=== PATIENT | female | born 1980 | race Caucasian/White ===

== ENCOUNTER 2019-11-09 09:33 | Emergency (ER) | payer BC, OTHER ==
[2019-11-09 09:45] VITALS: BP 118/78
--- NOTE | 2019-11-09 09:54 | UC ---
Throat Pain/Nasal Cash HPI - HPI Summary HPI Summary: 39 yo female presents with sore throat. She tells me that last night she developed a sore throat and headache. Her son has similar symptoms and tested positive for strep today at his art preparator's office. Pt is concerned she has strep. Nothing OTC for symptoms. She is eating, drinking, and tolerating po well. Denies fever, sinus symptoms, cough, rash. - History of Current Complaint Chief Complaint: UCGeneralIllness Stated Complaint: SORE THROAT Time Seen by Provider: 11/09/19 09:54 Hx Obtained From: Patient Hx Last Menstrual Period: 11/02/14 Onset/Duration: Sudden Onset Severity: Mild Pain Intensity: 4 Pain Scale Used: 0-10 Numeric - Allergies/Home Medications Allergies/Adverse Reactions: Allergies Allergy/AdvReac Type Severity Reaction Status Date / Time No Known Allergies Allergy Verified 11/09/19 09:45 PMH/Surg Hx/FS Hx/Imm Hx - Additional Past Medical History Additional PMH: None - Surgical History Surgical History: None - Family History Known Family History: Positive: Non-Contributory - Social History Occupation: Employed Full-time Lives: With Family Alcohol Use: Weekly Substance Use Type: None Smoking Status (MU): Former Smoker - Immunization History Most Recent Influenza Vaccination: none Most Recent Tetanus Shot: 12/26/15 Most Recent Pneumonia Vaccination: none Review of Systems All Other Systems Reviewed And Are Negative: No Constitutional: Positive: Negative Skin: Positive: Negative Eyes: Positive: Negative ENT: Positive: Sore Throat Respiratory: Positive: Negative Cardiovascular: Positive: Negative Gastrointestinal: Positive: Negative Neurovascular: Positive: Negative Neurological/Mental Status: Positive: Negative Psychological: Positive: Negative Physical Exam - Summary Physical Exam Summary: GENERAL: NAD. WDWN. No pain distress. SKIN: No rashes, sores, lesions, or open wounds. HEENT: Head: AT/NC Eyes: Conjunctiva clear without inflammation or discharge. Ears: Hearing grossly normal. TMs intact, no bulging, erythema, or edema. Nose: Nasal mucosa pink and moist. NTTP maxillary and frontal sinus. Throat: Posterior oropharynx mild erythema and 2+ tonsillar enlargement. No exudates. Uvula midline. No hoarse voice or muffled voice. NECK: Supple. Mildly ttp tonsillar LAD CHEST: CTAB. No r/r/w. No accessory muscle use. Breathing comfortably and in no distress. CV: RRR. Pulses intact. Cap refill <2seconds NEURO: Alert. PSYCH: Age appropriate behavior. Triage Information Reviewed: Yes Vital Signs: Initial Vital Signs Temp 98.4 F 11/09/19 09:41 Pulse 75 11/09/19 09:41 Resp 18 11/09/19 09:41 BP 118/78 11/09/19 09:41 Pulse Ox 100 11/09/19 09:41 Laboratory Tests 11/09/19 09:56 Group A Strep Rapid Negative Vital Signs Reviewed: Yes Throat Pain/Nasal Course/Dx - Course Course Of Treatment: POC strep negative. Given exposure, symptoms, and exam with erythema and LAD today - will call in anbx, but recommend pt try OTC supportive care for 2-3 days first and if symptoms worsen or do not improve may start anbx. Pt agreeable with plan - Differential Dx/Diagnosis Provider Diagnosis: Sore throat Discharge ED - Sign-Out/Discharge Documenting (check all that apply): Patient Departure All imaging exams completed and their final reports reviewed: No Studies - Discharge Plan Condition: Stable Disposition: HOME Prescriptions: Amoxicillin PO (*) [Amoxicillin 500 MG CAP*] 500 mg PO Q12H #20 cap Patient Education Materials: Pharyngitis (ED) Referrals: Luz Marina Yates MD [Primary Care Provider] - Additional Instructions: Your strep test was negative today, but you have had an exposure to strep and are having symptoms with an exam consistent with strep. I recommend trying supportive OTC care for 2-3 days and if your symptoms worsen or do not improve, may start antibiotic - Billing Disposition and Condition Condition: STABLE Disposition: Home - Attestation Statements Provider Attestation: I was available for consult. This patient was seen by the [facility]QUE[facility]. The patient was not presented to, seen by, or examined by me. -Ifeanyi
== END 2019-11-09 10:15 | disposition home or self-care (01) ==
LOC: UCEAST 09:33
DX: J02.9 Acute pharyngitis, unspecified (principal); Z87.891 Personal history of nicotine dependence
CPT/HCPCS: 87651; 99212; G0463